=== PATIENT | female | born 1985 ===

== ENCOUNTER 2017-03-25 12:30 | Emergency (ER) | payer OTHER ==
[2017-03-25 12:30] VITALS: BMI 22.1
[2017-03-25 12:34] VITALS: O2SAT 100
[2017-03-25] MEDS ORDERED: Sodium Chloride 0.9% 1,000 ML IV ONE (13:02)
[2017-03-25 13:04] LABS: HCG,QUALITATIVE URINE NEGATIVE (NEGATIVE)
[2017-03-25 13:12] LABS: SQUAMOUS EPITHIAL 5 /hpf (0-5); URINE BACTERIA RARE (<OCC); URINE BILIRUBIN NEGATIVE (NEGATIVE); URINE BLOOD NEGATIVE (NEGATIVE); URINE CLARITY Hazy (Clear); URINE COLOR Yellow (YELLOW); URINE GLUCOSE (UA) NORMAL (Normal); URINE LEUKOCYTE ESTERASE NEG Leu/uL (Negative); URINE NITRATE NEGATIVE (NEGATIVE); URINE PROTEIN NEGATIVE (NEGATIVE); URINE UROBILINOGEN NORMAL mg/dL (0.2-1.0)
--- NOTE | 2017-03-25 13:13 | C.PDOC ---
History Of Present Illness 31 yr old female presents to the ER with complaints of vomiting and diarrhea for the past 1 week. Patient states the diarrhea resolved in the last 3 days but still has nausea and vomits after eating. Reports of non radiating pain in the epigastric region and reports of feeling weak . Patient also reports of pain and swelling to her right ankle and left wrist. Reports history of Lupus and is compliant with her medications. Denies fever, chills, chest pain, SOB, dysuria, hematuria or headache. Time Seen by Provider: 03/25/17 12:58 Chief Complaint (Nursing): Abdominal Pain History Per: Patient History/Exam Limitations: no limitations Onset/Duration Of Symptoms: Days (1 week) Current Symptoms Are (Timing): Still Present Location Of Pain/Discomfort: Epigastric Past Medical History Reviewed: Historical Data, Nursing Documentation, Vital Signs Vital Signs: Last Vital Signs Temp 98.4 F 03/25/17 16:50 Pulse 81 03/25/17 16:50 Resp 18 03/25/17 16:50 BP 100/68 03/25/17 16:50 Pulse Ox 100 03/25/17 16:50 - Medical History PMH: Anemia (lupus x 2 yrs), Arthritis, Hypothyroidism Surgical History: Endoscopy - [facility] Procedures CLOSED ENDOSCOPIC BIOPSY OF LARGE INTESTINE (08/04/14) DX ULTRASOUND-DIGESTIVE (08/11/14) ESOPHAGOGASTRODUODENOSCOPY [EGD] W/CLOSED BIOPSY (08/04/14) FLEXIBLE SIGMOIDOSCOPY (08/11/14) OTHER ENDOSCOPY OF SM INTEST (08/11/14) PACKED CELL TRANSFUSION (08/04/14) Family History: States: No Known Family Hx - Social History Hx Tobacco Use: No Hx Alcohol Use: No Hx Substance Use: No - Immunization History Hx Tetanus Toxoid Vaccination: No Hx Influenza Vaccination: No Hx Pneumococcal Vaccination: No Review Of Systems Except As Marked, All Systems Reviewed And Found Negative. Constitutional: Negative for: Fever, Chills Cardiovascular: Negative for: Chest Pain Respiratory: Negative for: Shortness of Breath Gastrointestinal: Positive for: Nausea, Vomiting, Abdominal Pain (epigastric), Diarrhea (resolved now) Genitourinary: Negative for: Dysuria, Hematuria Neurological: Negative for: Headache Physical Exam - Physical Exam Appears: Non-toxic, No Acute Distress, Other (Dehydrated) Skin: Warm, Dry, No Rash Head: Atraumatic, Normacephalic Eye(s): bilateral: Normal Inspection, PERRL, EOMI Oral Mucosa: Moist Neck: Normal ROM Chest: Symmetrical, No Other (Tachy) Cardiovascular: Rhythm Regular, Other (Tachy) Respiratory: Normal Breath Sounds, No Rales, No Rhonchi, No Stridor, No Wheezing Gastrointestinal/Abdominal: Soft, Tenderness (mild epigastric), No Guarding, No Rebound Back: Normal Inspection, No CVA Tenderness Extremity: Normal ROM, No Tenderness, Capillary Refill (<2 seconds), No Deformity, Other (minimal swelling to right ankle joint, no erythema or tenderness ) Neurological/Psych: Oriented x3, Normal Speech, Normal Motor, Normal Sensation Gait: Steady ED Course And Treatment - Laboratory Results Result Diagrams: 03/25/17 13:24 03/25/17 13:24 Lab Interpretation: No Acute Changes O2 Sat by Pulse Oximetry: 100 (RA) Pulse Ox Interpretation: Normal - CT Scan/US CT - Abd & Pelvis Other Rad Studies (CT/US): Read By Radiologist, Radiology Report Reviewed CT/US Interpretation: PROCEDURE: CT Abdomen and Pelvis with contrast. HISTORY : Abdominal pain. Beta HCG results: COMPARISON: 08/09/2014 CT abdomen and pelvis. TECHNIQUE: Contrast dose: 100 cc Omnipaque 300. Radiation dose: Total exam DLP = 417.23 mGy-cm. This CT exam was performed using one or more of the following dose reduction techniques: Automated exposure control, adjustment of the mA and/or kV according to patient size, and/or use of iterative reconstruction technique. FINDINGS: LOWER THORAX: Focal thickening of the distal esophagus similar to that seen previously. LIVER: Hepatic steatosis. No focal masses. No intrahepatic bile duct dilatation or perihepatic ascites. GALLBLADDER AND BILE DUCTS: Unremarkable. PANCREAS: Unremarkable. No gross lesion or ductal dilatation. SPLEEN: Unremarkable. ADRENALS: Unremarkable. No mass. KIDNEYS AND URETERS: Unremarkable. No hydronephrosis. No solid mass. VASCULATURE: Unremarkable. No aortic aneurysm. BOWEL: Unremarkable. No obstruction. No gross mural thickening. APPENDIX: Normal appendix. PERITONEUM: Unremarkable. No free fluid. No free air. LYMPH NODES: Unremarkable. No enlarged lymph nodes. BLADDER: Unremarkable. REPRODUCTIVE: One, possibly 2 cysts in the left adnexa including a collapsed cyst. Trace free fluid identified in the pelvis/cul de sac. BONES: No acute fracture. OTHER FINDINGS: None. IMPRESSION: Findings consistent with recently ruptured left adnexal cyst. Associated trace fluid in the cul-de-sac. Additional benign and/or incidental findings described above. Medical Decision Making Medical Decision Making: PLAN: * CT - Abd & Pelvis * CBC * CMP * ESR * HCG * Urinalysis * Morphine IVP * Pepcid IVP * Zofran IVP * Sodium Chloride IV PROGRESS Labs reviewed. CT shows no acute findings to correlate for presenting symptoms. No appendicitis, diverticulitis, or enteritis. Patient reevaluated has no fever and is in no distress. She reports feeling better. Abdomen remains soft. Patient is stable for discharge. I explained results and provided copy of reports. She feels comfortable going home and will be discharge, instructed to follow up with PCP Dr Schumacher. Disposition Counseled Patient/Family Regarding: Studies Performed, Diagnosis, Need For Followup - Disposition Referrals: Rosendo Schumacher MD [Staff Provider] - Disposition: HOME/ ROUTINE Disposition Time: 16:38 Condition: IMPROVED Additional Instructions: Vaya a rodriguez mdico o la clnica en 2-5 howell sin falta, para mas evaluacin. Volver a la tk de emergencia en cualquier momento si los sntomas persisten o empeoran. Instructions: Gastroenteritis (DC) Forms: [employer] (Persian) Print Language: HEBREW - POA Present On Arrival: None - Clinical Impression Clinical Impression: Gastroenteritis - PA / [employer] / Resident Statement MD/DO has reviewed & agrees with the documentation as recorded. - Scribe Statement The provider has reviewed the documentation as recorded by the Scribe Ericka Sommers All medical record entries made by the Scribe were at my direction and personally dictated by me. I have reviewed the chart and agree that the record accurately reflects my personal performance of the history, physical exam, medical decision making, and the department course for this patient. I have also personally directed, reviewed, and agree with the discharge instructions and disposition.
[2017-03-25 13:27] LABS: BASO # 0.1 K/uL (0.0-0.2); BASO % 0.7 % (0.0-2.0); EOS % 0.5 % (0.0-4.0); HEMOGLOBIN 9.1 g/dL (11.0-16.0); LYMPH # 1.6 K/uL (1.0-4.3); LYMPH % 18.9 % (20.0-40.0); MEAN CELL VOLUME 67.3 fL (81.0-99.0); MEAN CORPUSCULAR HEMOGLOBIN 21.1 pg (27.0-31.0); MEAN CORPUSCULAR HGB CONC 31.4 g/dL (33.0-37.0); MEAN PLATELET VOLUME 8.4 fL (7.2-11.7); MONO # 0.6 K/uL (0.0-0.8); MONO % 6.6 % (0.0-10.0); NEUT # 6.2 K/uL (1.8-7.0); NEUT % 73.3 % (50.0-75.0); RBC 4.29 Mil/uL (3.80-5.20); RED CELL DISTRIBUTION WIDTH 16.9 % (11.5-14.5); WHITE BLOOD COUNT 8.5 K/uL (4.8-10.8)
[2017-03-25] MEDS ORDERED: Sodium Chloride 0.9% 1,000 ML ONE (13:29)
[2017-03-25 13:47] LABS: ALB/GLOB RATIO 1.2 (1.0-2.1); ALBUMIN 4.1 g/dL (3.5-5.0); ALT/SGPT 36 U/L (9-52); AST/SGOT 23 U/L (14-36); BLOOD UREA NITROGEN 13 mg/dL (7-17); CALCIUM 8.2 mg/dl (8.6-10.4); GFR AFRICAN-AMERICAN > 60; GFR NON-AFRICAN AMERICAN > 60; LIPASE 76 U/L (23-300)
[2017-03-25] MEDS ORDERED: Iohexol 300 100 ML IJ ONE (13:53)
--- NOTE | 2017-03-25 16:24 | CT ---
PROCEDURE: CT Abdomen and Pelvis with contrast HISTORY: Abdominal pain. Beta HCG results: COMPARISON: 08/09/2014 CT abdomen and pelvis TECHNIQUE: Contrast dose: 100 cc Omnipaque 300 Radiation dose: Total exam DLP = 417.23 mGy-cm. This CT exam was performed using one or more of the following dose reduction techniques: Automated exposure control, adjustment of the mA and/or kV according to patient size, and/or use of iterative reconstruction technique. FINDINGS: LOWER THORAX: Focal thickening of the distal esophagus similar to that seen previously. LIVER: Hepatic steatosis. No focal masses. No intrahepatic bile duct dilatation or perihepatic ascites. GALLBLADDER AND BILE DUCTS: Unremarkable. PANCREAS: Unremarkable. No gross lesion or ductal dilatation. SPLEEN: Unremarkable. ADRENALS: Unremarkable. No mass. KIDNEYS AND URETERS: Unremarkable. No hydronephrosis. No solid mass. VASCULATURE: Unremarkable. No aortic aneurysm. BOWEL: Unremarkable. No obstruction. No gross mural thickening. APPENDIX: Normal appendix. PERITONEUM: Unremarkable. No free fluid. No free air. LYMPH NODES: Unremarkable. No enlarged lymph nodes. BLADDER: Unremarkable. REPRODUCTIVE: One, possibly 2 cysts in the left adnexa including a collapsed cyst. Trace free fluid identified in the pelvis/cul de sac. BONES: No acute fracture. OTHER FINDINGS: None. IMPRESSION: Findings consistent with recently ruptured left adnexal cyst. Associated trace fluid in the cul-de-sac. Additional benign and/or incidental findings described above.
[2017-03-25 16:52] VITALS: BP 100/68; PULSE 81; RESP 18; TEMP 98.4
== END 2017-03-25 16:52 | disposition home or self-care (01) ==
LOC: C.ER 12:30
DX: K52.9 Noninfective gastroenteritis and colitis, unspecified (principal); M32.9 Systemic lupus erythematosus, unspecified; E03.9 Hypothyroidism, unspecified
CPT/HCPCS: 74177; 80053; 81001; 83690; 84703; 85025; 85651; 96361; 96374; 96375; 99284; J2270; J2405; J7040; Q9967

== ENCOUNTER 2017-04-02 08:54 | Emergency (ER) | payer OTHER ==
[2017-04-02 08:54] VITALS: BMI 22.1
[2017-04-02] MEDS ORDERED: Sodium Chloride 0.9% 1,000 ML IV ONE (10:07)
[2017-04-02 10:08] LABS: HCG,QUALITATIVE URINE NEGATIVE (NEGATIVE)
[2017-04-02] MEDS ORDERED: Sodium Chloride 0.9% 1,000 ML ONE (10:20)
[2017-04-02 10:23] LABS: SQUAMOUS EPITHIAL 10 /hpf (0-5); URINE BACTERIA RARE (<OCC); URINE BILIRUBIN NEGATIVE (NEGATIVE); URINE BLOOD NEGATIVE (NEGATIVE); URINE CLARITY Hazy (Clear); URINE COLOR Yellow (YELLOW); URINE GLUCOSE (UA) NORMAL (Normal); URINE HYALINE CAST 0-2 /lpf (0-2); URINE LEUKOCYTE ESTERASE NEG Leu/uL (Negative); URINE NITRATE NEGATIVE (NEGATIVE); URINE PROTEIN NEGATIVE (NEGATIVE); URINE UROBILINOGEN NORMAL mg/dL (0.2-1.0)
[2017-04-02 10:24] LABS: BASO % 0.5 % (0.0-2.0); EOS % 0.2 % (0.0-4.0); HEMOGLOBIN 9.2 g/dL (11.0-16.0); LYMPH # 1.5 K/uL (1.0-4.3); LYMPH % 24.5 % (20.0-40.0); MEAN CELL VOLUME 66.9 fL (81.0-99.0); MEAN CORPUSCULAR HEMOGLOBIN 20.7 pg (27.0-31.0); MEAN CORPUSCULAR HGB CONC 30.9 g/dL (33.0-37.0); MEAN PLATELET VOLUME 8.7 fL (7.2-11.7); MONO # 0.5 K/uL (0.0-0.8); MONO % 8.6 % (0.0-10.0); NEUT # 4.2 K/uL (1.8-7.0); NEUT % 66.2 % (50.0-75.0); NRBC % 0.1 % (0.0-2.0); RBC 4.45 Mil/uL (3.80-5.20); RED CELL DISTRIBUTION WIDTH 17.8 % (11.5-14.5); WHITE BLOOD COUNT 6.3 K/uL (4.8-10.8)
--- NOTE | 2017-04-02 10:34 | C.PDOC ---
History Of Present Illness 31yo female, presents to ED with complaints of left lower abdominal pain, radiating to her back. Of note, patient was seen in the ED last week for similar complaints. She reports her abdominal pain was improving but returned; she also states she followed up with Dr. Schumacher who informed her to present to ED for an ultrasound if her symptoms worsened. Patient denies any fever, chills , nausea, vomiting, vaginal bleeding or urinary symptoms. She has no other medical complaints. Time Seen by Provider: 04/02/17 09:32 Chief Complaint (Nursing): Abdominal Pain History Per: Patient History/Exam Limitations: no limitations Onset/Duration Of Symptoms: Days Current Symptoms Are (Timing): Still Present Location Of Pain/Discomfort: LLQ Radiation Of Pain To:: Back Quality Of Discomfort: "Pain" Associated Symptoms: Back Pain. denies: Fever, Nausea, Vomiting, Diarrhea, Urinary Symptoms Abnormal Vaginal Bleeding: No Past Medical History Reviewed: Historical Data, Nursing Documentation, Vital Signs Vital Signs: Last Vital Signs Temp 98.7 F 04/02/17 11:35 Pulse 71 04/02/17 11:35 Resp 20 04/02/17 11:35 BP 100/62 04/02/17 11:35 Pulse Ox 100 04/02/17 14:29 - Medical History PMH: Anemia (lupus x 2 yrs), Arthritis, Hypothyroidism Denies: Hyperthyroidism, Chronic Kidney Disease Surgical History: Endoscopy - [facility] Procedures CLOSED ENDOSCOPIC BIOPSY OF LARGE INTESTINE (08/04/14) DX ULTRASOUND-DIGESTIVE (08/11/14) ESOPHAGOGASTRODUODENOSCOPY [EGD] W/CLOSED BIOPSY (08/04/14) FLEXIBLE SIGMOIDOSCOPY (08/11/14) OTHER ENDOSCOPY OF SM INTEST (08/11/14) PACKED CELL TRANSFUSION (08/04/14) Family History: States: Unknown Family Hx - Social History Hx Tobacco Use: No Hx Alcohol Use: No Hx Substance Use: No - Immunization History Hx Tetanus Toxoid Vaccination: No Hx Influenza Vaccination: Yes (2017) Hx Pneumococcal Vaccination: Yes (2017) Review Of Systems Except As Marked, All Systems Reviewed And Found Negative. Constitutional: Negative for: Fever, Chills Gastrointestinal: Positive for: Abdominal Pain. Negative for: Nausea, Vomiting , Diarrhea Genitourinary: Negative for: Dysuria, Frequency, Hematuria Musculoskeletal: Positive for: Back Pain Physical Exam - Physical Exam Appears: Non-toxic, No Acute Distress Skin: Normal Color, Warm, Dry Head: Atraumatic, Normacephalic Eye(s): bilateral: Normal Inspection Neck: Supple Cardiovascular: Rhythm Regular Respiratory: Normal Breath Sounds Gastrointestinal/Abdominal: Soft, Tenderness (diffuse left sided tenderness including left flank) Back: Normal Inspection, No CVA Tenderness, No Muscle Spasm Neurological/Psych: Oriented x3, Normal Speech ED Course And Treatment - Laboratory Results Result Diagrams: 04/02/17 10:18 04/02/17 10:18 O2 Sat by Pulse Oximetry: 100 (RA) Pulse Ox Interpretation: Normal Medical Decision Making Medical Decision Making: Impression: Abdominal pain, back pain Plan: -- CMP -- Toradol 30 mg IM -- IV Fluids -- US Pelvis 1428 Patient reevaluated and resting comfortable in no distress. She reports pain has improved. Discussed results with patient, and copy of report was provided. On re-examination, patient is resting comfortably in no acute distress. Patient reports improvement of symptoms. Patient feels comfortable going home and will be discharged. Patient given follow up instructions. Instructed to return to ER if symptoms worsen or new symptoms arise. Disposition Counseled Patient/Family Regarding: Diagnosis, Need For Followup, Rx Given - Disposition Referrals: Rosendo Schumacher MD [Staff Provider] - Disposition: HOME/ ROUTINE Disposition Time: 14:29 Condition: GOOD Additional Instructions: Copy of your ultrasound report was provided to you. 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 Take medications as prescribed. Return to the emergency department at any time if symptoms persist or worsen. Prescriptions: traMADol [Ultram] 50 mg PO Q8 #20 tab Instructions: Acute Abdominal Pain (DC) Forms: [employer] (Setswana) Print Language: NIUEAN - POA Present On Arrival: None - Clinical Impression Clinical Impression: Left sided abdominal pain - PA / [employer] / Resident Statement MD/DO has reviewed & agrees with the documentation as recorded. - Scribe Statement The provider has reviewed the documentation as recorded by the Cesia Bartlett Provider Scribe Attestation: All medical record entries made by the Scribe were at my direction and personally dictated by me. I have reviewed the chart and agree that the record accurately reflects my personal performance of the history, physical exam, medical decision making, and the department course for this patient. I have also personally directed, reviewed, and agree with the discharge instructions and disposition.
[2017-04-02 10:57] LABS: ALB/GLOB RATIO 1.1 (1.0-2.1); ALT/SGPT 27 U/L (9-52); AST/SGOT 19 U/L (14-36); BLOOD UREA NITROGEN 13 mg/dL (7-17); CALCIUM 8.7 mg/dl (8.6-10.4); GFR AFRICAN-AMERICAN > 60; GFR NON-AFRICAN AMERICAN > 60
--- NOTE | 2017-04-02 13:45 | US ---
HISTORY: LLQ pain, adnexal cyst rupture last week COMPARISON: None available. TECHNIQUE: Pelvis/transvaginal ultrasound FINDINGS: UTERUS: Measures 9.8 x 4.8 x 6.2 cm. Anteverted. ENDOMETRIUM: Measures 0.8 cm in diameter. Fluid with echoes noted within the endometrial canal CERVIX: No cervical abnormality identified. RIGHT OVARY: Measures 3.5 x 2.0 x 2.9 cm. Blood flow is demonstrated. LEFT OVARY: Measures 3.8 x 2.3 x 3.3 cm. Blood flow is demonstrated. FREE FLUID: No significant free fluid noted. OTHER FINDINGS: None. IMPRESSION: Fluid within the endometrium appears complex with evidence of echoes. Otherwise unremarkable study as above. Correlate clinically.
[2017-04-02 14:58] VITALS: BP 95/63; PULSE 82; RESP 18; TEMP 98.3; O2SAT 98
== END 2017-04-02 14:59 | disposition home or self-care (01) ==
LOC: C.ER 08:54
DX: R10.9 Unspecified abdominal pain (principal); D64.9 Anemia, unspecified; M32.9 Systemic lupus erythematosus, unspecified
CPT/HCPCS: 76830; 76856; 80053; 81001; 84703; 85025; 96361; 96374; 99285; J1885; J7040

== ENCOUNTER 2018-03-20 08:40 | Emergency (ER) | payer OTHER ==
[2018-03-20 08:40] VITALS: BMI 22.1
[2018-03-20 08:55] VITALS: O2SAT 98
[2018-03-20] MEDS ORDERED: Sodium Chloride 0.9% 1,000 ML IV ONE (09:26)
[2018-03-20] MEDS ORDERED: Sodium Chloride 0.9% 1,000 ML ONE (09:42)
[2018-03-20 10:08] LABS: BASO % 0.1 % (0.0-2.0); EOS # 0.1 K/uL (0.0-0.7); EOS % 0.7 % (0.0-4.0); LYMPH # 0.7 K/uL (1.0-4.3); LYMPH % 8.9 % (20.0-40.0); MEAN CORPUSCULAR HEMOGLOBIN 28.5 pg (27.0-31.0); MEAN CORPUSCULAR HGB CONC 32.6 g/dL (33.0-37.0); MEAN PLATELET VOLUME 8.6 fL (7.2-11.7); MONO # 0.3 K/uL (0.0-0.8); MONO % 3.4 % (0.0-10.0); NEUT # 7.2 K/uL (1.8-7.0); NEUT % 86.9 % (50.0-75.0); PLATELET COUNT 199 K/uL (130-400); RBC 4.83 Mil/uL (3.80-5.20); RED CELL DISTRIBUTION WIDTH 13.8 % (11.5-14.5); WHITE BLOOD COUNT 8.2 K/uL (4.8-10.8)
[2018-03-20 10:10] LABS: HCG,QUALITATIVE URINE NEGATIVE (NEGATIVE)
[2018-03-20 10:12] LABS: HEMOGLOBIN 13.7 g/dL (11.0-16.0)
[2018-03-20 10:13] LABS: MEAN CELL VOLUME 87.3 fL (81.0-99.0)
[2018-03-20 10:18] LABS: SQUAMOUS EPITHIAL 4 /hpf (0-5); URINE BACTERIA RARE (<OCC); URINE BILIRUBIN NEGATIVE (NEGATIVE); URINE BLOOD 2+ (NEGATIVE); URINE CLARITY Hazy (Clear); URINE COLOR Yellow (YELLOW); URINE GLUCOSE (UA) NORMAL (Normal); URINE LEUKOCYTE ESTERASE NEG Leu/uL (Negative); URINE PROTEIN NEGATIVE (NEGATIVE); URINE UROBILINOGEN NORMAL mg/dL (0.2-1.0)
[2018-03-20 10:27] LABS: ALB/GLOB RATIO 1.4 (1.0-2.1); ALBUMIN 4.4 g/dL (3.5-5.0); ALT/SGPT 68 U/L (9-52); AST/SGOT 40 U/L (14-36); BLOOD UREA NITROGEN 18 mg/dL (7-17); CALCIUM 8.7 mg/dl (8.6-10.4); GFR NON-AFRICAN AMERICAN > 60; LIPASE 61 U/L (23-300)
--- NOTE | 2018-03-20 10:31 | C.PDOC ---
History Of Present Illness 32 y/o female presents to the ER complaining of abdominal pain and multiple episodes of vomiting and diarrhea which has been present for the past 1 day. Patient is also complaining of sore throat. Denies having fever, chills, dysuria , and hematuria. Time Seen by Provider: 03/20/18 09:03 Chief Complaint (Nursing): Abdominal Pain History Per: Patient History/Exam Limitations: no limitations Onset/Duration Of Symptoms: Days Current Symptoms Are (Timing): Still Present Severity: Moderate Associated Symptoms: Vomiting, Diarrhea. denies: Fever, Chills, Urinary Symptoms Past Medical History Reviewed: Historical Data, Nursing Documentation, Vital Signs Vital Signs: Last Vital Signs Temp 98 F 03/20/18 08:52 Pulse 98 H 03/20/18 08:52 Resp 18 03/20/18 08:52 BP 109/80 03/20/18 08:52 Pulse Ox 98 03/20/18 08:52 - Medical History PMH: Anemia (lupus x 2 yrs), Arthritis, Hypothyroidism Denies: Hyperthyroidism Surgical History: Endoscopy - [facility] Procedures CLOSED ENDOSCOPIC BIOPSY OF LARGE INTESTINE (08/04/14) DX ULTRASOUND-DIGESTIVE (08/11/14) ESOPHAGOGASTRODUODENOSCOPY [EGD] W/CLOSED BIOPSY (08/04/14) FLEXIBLE SIGMOIDOSCOPY (08/11/14) OTHER ENDOSCOPY OF SM INTEST (08/11/14) PACKED CELL TRANSFUSION (08/04/14) Family History: States: No Known Family Hx - Social History Hx Tobacco Use: No Hx Alcohol Use: No Hx Substance Use: No - Immunization History Hx Tetanus Toxoid Vaccination: No Hx Influenza Vaccination: Yes (2017) Hx Pneumococcal Vaccination: Yes (2017) Review Of Systems Except As Marked, All Systems Reviewed And Found Negative. Constitutional: Negative for: Fever, Chills ENT: Positive for: Throat Pain Cardiovascular: Negative for: Chest Pain Respiratory: Negative for: Shortness of Breath Gastrointestinal: Positive for: Vomiting, Abdominal Pain, Diarrhea Physical Exam - Physical Exam Appears: Non-toxic, No Acute Distress Skin: Normal Color, Warm, Dry Head: Atraumatic, Normacephalic Eye(s): bilateral: Normal Inspection Nose: Normal Oral Mucosa: Moist Throat: Normal, No Erythema, No Exudate Neck: Supple Chest: Symmetrical Cardiovascular: Rhythm Regular Respiratory: No Rales, No Rhonchi, Wheezing Gastrointestinal/Abdominal: Soft, No Tenderness, No Guarding, No Rebound Neurological/Psych: Oriented x3, Normal Speech ED Course And Treatment - Laboratory Results Result Diagrams: 03/20/18 10:02 03/20/18 10:02 Lab Results: Total Bilirubin 0.5 mg/dL (0.2-1.3) 03/20/18 10:02 AST 40 U/L (14-36) H D 03/20/18 10:02 ALT 68 U/L (9-52) H D 03/20/18 10:02 Alkaline Phosphatase 81 U/L (38-126) 03/20/18 10:02 Total Protein 7.5 g/dL (6.3-8.3) 03/20/18 10:02 Albumin 4.4 g/dL (3.5-5.0) 03/20/18 10:02 Globulin 3.2 gm/dL (2.2-3.9) 03/20/18 10:02 Albumin/Globulin Ratio 1.4 (1.0-2.1) 03/20/18 10:02 Lipase 61 U/L (23-300) 03/20/18 10:02 Urine Color Yellow (YELLOW) 03/20/18 10:02 Urine Clarity Hazy (Clear) 03/20/18 10:02 Urine pH 5.0 (5.0-8.0) 03/20/18 10:02 Ur Specific Basom 1.020 (1.003-1.030) 03/20/18 10:02 Urine Protein Negative mg/dL (NEGATIVE) 03/20/18 10:02 Urine Glucose (UA) Normal mg/dL (Normal) 03/20/18 10:02 Urine Ketones Negative mg/dL (NEGATIVE) 03/20/18 10:02 Urine Blood 2+ (NEGATIVE) H 03/20/18 10:02 Urine Nitrate Negative (NEGATIVE) 03/20/18 10:02 Urine Bilirubin Negative (NEGATIVE) 03/20/18 10:02 Urine Urobilinogen Normal mg/dL (0.2-1.0) 03/20/18 10:02 Ur Leukocyte Esterase Neg Claudia/uL (Negative) 03/20/18 10:02 Urine WBC (Auto) 1 /hpf (0-5) 03/20/18 10:02 Urine RBC (Auto) < 1 /hpf (0-3) 03/20/18 10:02 Ur Squamous Epith Cells 4 /hpf (0-5) 03/20/18 10:02 Urine Bacteria Rare (<OCC) 03/20/18 10:02 Urine HCG, Qual Negative (NEGATIVE) 03/20/18 10:02 Urine HCG, Qual Negative (NEGATIVE) 03/20/18 10:02 Lab Interpretation: No Acute Changes O2 Sat by Pulse Oximetry: 98 (RA) Pulse Ox Interpretation: Normal Progress Note: Treated with IVF NSS and zofran and bentyl. On re-evaluation abdomen soft in no distress Reassessment Condition: Improved Medical Decision Making Medical Decision Making: Plan: --Labs --UA --Bentyl IM --Zofran IV --IV Fluids Disposition Counseled Patient/Family Regarding: Studies Performed, Diagnosis, Need For Followup, Rx Given - Disposition [facility] Disposition: HOME/ ROUTINE Disposition Time: 11:20 Condition: IMPROVED Additional Instructions: Follow up with the clinic or PMD for further evaluation Drink lots of fluids Instructions: Viral Gastroenteritis Forms: [employer] (Tajik) Print Language: SWAZI - POA Present On Arrival: None - Clinical Impression Clinical Impression: Gastroenteritis - PA / [employer] / Resident Statement MD/DO has reviewed & agrees with the documentation as recorded. - Scribe Statement The provider has reviewed the documentation as recorded by the Cesia Gonzales Provider Attestation All medical record entries made by the Scribe were at my direction and personally dictated by me. I have reviewed the chart and agree that the record accurately reflects my personal performance of the history, physical exam, medical decision making, and the department course for this patient. I have also personally directed, reviewed, and agree with the discharge instructions and disposition.
[2018-03-20 10:39] LABS: LYMPHOCYTE 10 % (20-40); MONOCYTE 2 % (0-10); NEUTROPHIL 88 % (50-75); PLATELET ESTIMATE NORMAL (NORMAL); TOTAL CELLS COUNTED 100
[2018-03-20 10:58] VITALS: BP 108/72; PULSE 93; RESP 20; TEMP 98.3
== END 2018-03-20 11:40 | disposition home or self-care (01) ==
LOC: C.ER 08:40
DX: K52.9 Noninfective gastroenteritis and colitis, unspecified (principal); E03.9 Hypothyroidism, unspecified
CPT/HCPCS: 80053; 81001; 83690; 84703; 85025; 96361; 96372; 96374; 99284; J0500; J2405; J7030